=== PATIENT | female | born 1940 ===

== ENCOUNTER 2018-01-18 14:17 | Emergency (ER) | payer OTHER ==
[~2018-01-18] VITALS: Ht 167.6 cm; Wt 72.6 kg
[2018-01-18 14:23] VITALS: Ht 167.6 cm; Wt 72.6 kg
[2018-01-18 14:56] LABS: BASOPHIL % 0.6 % (0-2); PLATELET COUNT 227 x10^3mcL (130-400); RED CELL DISTRIBUTION WIDTH 14.3 % (11.5-14.5)
[2018-01-18 14:57] LABS: microscopic required? NO
[2018-01-18 15:10] LABS: CALCIUM 9.1 mg/dL (8.5-10.1); CARBON DIOXIDE 24.4 mmol/L (21-32); CHLORIDE SERUM 102 mmol/L (98-107); CREATININE SERUM 2.4 mg/dL (0.6-1.0); GLUCOSE SERUM 137 mg/dL (74-106); POTASSIUM SERUM 4.4 mmol/L (3.5-5.1); SODIUM SERUM 136 mmol/L (136-145)
[2018-01-18 15:20] LABS: urine erythrocyte NEGATIVE (NEGATIVE)
[2018-01-18 15:22] LABS: ALBUMIN 3.9 g/dL (3.4-5.0); ALKALINE PHOSPHATASE 32 U/L (46-116); ALT/SGPT 41 U/L (14-59); AMYLASE 93 U/L (25-115); AST/SGOT 30 U/L (15-37); BILIRUBIN TOTAL 0.6 mg/dL (0.20-1.00); CHOLESTEROL 128 mg/dL (<200); HDL CHOLESTEROL 60 mg/dL (40-60); LIPASE 246 IU/L (73-393); MAGNESIUM 2.6 mg/dL (1.8-2.4); T4(THYROXINE) 6.3 ug/dL (4.7-13.3); TOTAL PROTEIN, SERUM 7.5 g/dL (6.4-8.2)
[2018-01-18 15:28] LABS: AMPHETAMINE QUAL UR NONE DETECTED (NEG <=1000)
[2018-01-18 16:15] VITALS: BP 131/71
== END 2018-01-18 16:26 | disposition left against medical advice (07) ==
LOC: ED 14:17
PROVIDERS: Emergency Medicine
DX: R55 Syncope and collapse (principal); E10.22 Type 1 diabetes mellitus with diabetic chronic kidney disease; I12.9 Hypertensive chronic kidney disease with stage 1 through stage 4 chronic kidney disease, or unspecified chronic kidney disease; N18.4 Chronic kidney disease, stage 4 (severe); E78.00 Pure hypercholesterolemia, unspecified; J00 Acute nasopharyngitis [common cold]
CPT/HCPCS: 83880; J7030; Q0092